=== PATIENT | male | born 1955 | race Hispanic/Latino ===

== ENCOUNTER → 2019-09-18 | Outpatient (CLI) | payer OTHER ==
[~2019-09-18] MED LIST: LISI-613 PO
== END | disposition home or self-care (01) ==
LOC: OIH 10:38
PROVIDERS: ATTEND Family Medicine
DX: M47.815 Spondylosis without myelopathy or radiculopathy, thoracolumbar region (principal); R13.10 Dysphagia, unspecified
CPT/HCPCS: 71046

== ENCOUNTER → 2020-02-25 | Outpatient (CLI) | payer OTHER | END | disposition home or self-care (01) | LOC: SHCH 10:11 | PROVIDERS: ATTEND Internal Medicine Cardiovascular Disease | DX: R60.9 Edema, unspecified (principal); R06.00 Dyspnea, unspecified | CPT/HCPCS: 93306; 93356; 93925; 93970 ==